=== PATIENT | female | born 1950 | race Caucasian/White ===

== ENCOUNTER 2017-06-21 23:41 | Emergency (ER) | payer OTHER ==
[~2017-06-21] VITALS: Ht 165.1 cm; Wt 102.7 kg
[~2017-06-21 23:41] MED LIST: BACTRIM,SEPT1 TABLET PO; CHOLESTEROL MED; HTN MED; LIPITOR40 MG PO; LOSARTAN POTASS50 MG PO; METOPROLOL SUCC25 MG PO; OCEAN NASAL 0.645 ML BOTH NARES; PAROXETINE HCL20 MG PO; PRAVASTATIN SOD40 MG PO
[2017-06-22] MEDS ORDERED: NORCO 5/3251 TABLET PO (02:30)
[2017-06-22 02:40] VITALS: BP 141/77
== END 2017-06-22 02:41 | disposition home or self-care (01) ==
LOC: EME 23:41
DX: S83.91XA Sprain of unspecified site of right knee, initial encounter (principal); S39.012A Strain of muscle, fascia and tendon of lower back, initial encounter; X50.9XXA Other and unspecified overexertion or strenuous movements or postures, initial encounter; W18.39XA Other fall on same level, initial encounter; Y93.01 Activity, walking, marching and hiking; Y92.488 Other paved roadways as the place of occurrence of the external cause; Z88.0 Allergy status to penicillin
CPT/HCPCS: 73564; 99281; 99283

== ENCOUNTER → 2018-02-20 | Outpatient (CLI) | payer MEDICARE, OTHER ==
[~2018-02-20] MED LIST changes: +NORCO 5/3251 TABLET PO
== END | disposition home or self-care (01) ==
LOC: CDC 11:43
DX: I45.10 Unspecified right bundle-branch block (principal); R94.31 Abnormal electrocardiogram [ECG] [EKG]
CPT/HCPCS: 93000